=== PATIENT | male | born 2000 | race Caucasian/White ===

== ENCOUNTER 2021-07-02 08:36 | Emergency (ER) | payer SELFPAY ==
--- NOTE | ~2021-07-02 | XR_ITS ---
EXAMINATION: XR chest 1V portable EXAM DATE: 07/02/2021 09:46 INDICATION: Cough and left-sided chest pain. TECHNIQUE: Portable AP frontal chest x-ray was obtained. Comparison is made to prior examination from 08/30/2015. FINDINGS: The lungs are clear. There are no pleural effusions. The cardiomediastinal silhouette is within normal limits. There is no pneumothorax suspected. The bones and soft tissues are unremarkab le. IMPRESSION: No acute cardiopulmonary findings. Reviewed, dictated and finalized at location B. K DIGGER
[2021-07-02 08:49] VITALS: BP 159/95; PULSE 75; RESP 18; TEMP 36.2; O2SAT 98
[2021-07-02 09:03] LABS: Basophils Percent Auto 0.4 % (0.2-1.2); Eosinophils Absolute Auto 0.1 K/mm3 (0-0.3); Eosinophils Percent Auto 1.3 % (0-4.4); Hematocrit 51.3 % (42.0-52.0); Hemoglobin 17.4 g/dL (14.0-18.0); Immature Granulocyte Absolute 0.01 K/mm3 (0.00-0.031); Immature Granulocyte Percent A 0.2 % (0-0.5); Lymphocytes Absolute Auto 0.94 K/mm3 (0.9-3.2); Lymphocytes Percent Auto 19.7 % (18.3-44.2); Mean Corpuscular HGB Conc 33.9 g/dl (32-36); Mean Corpuscular Hemoglobin 30.5 pg (26-34); Mean Corpuscular Volume 89.8 fl (80-100); Mean Platelet Volume 11.1 fl (7.4-10.4); Monocytes Absolute Auto 0.6 K/mm3 (0.1-0.6); Monocytes Percent Auto 13.4 % (2.6-8.5); Neutrophils Absolute Auto 3.1 K/mm3 (1.3-6.7); Platelet Count Result 201 k/mm3 (150-375); Red Blood Count 5.71 M/mm3 (4.6-6.20); White Blood Count 4.8 K/mm3 (4.5-10.0)
[2021-07-02 09:17] LABS: Add Urine Microscopic? YES; Alanine Aminotransferase 44 U/L (4-50); Albumin Level 4.9 g/dL (3.5-5.1); Alkaline Phosphatase 51 U/L (38-126); Anion Gap 10 mmol/L (8-16); Appearance Urine Clear (Clear); Aspartate Amino Transferase 31 U/L (17-59); Bilirubin Urine Negative (Negative); Bilirubin,Total 0.5 mg/dL (0.2-1.3); Blood Urea Nitrogen 11 mg/dL (9-20); Blood Urine Negative (Negative); Calcium 9.8 mg/dL (8.4-10.2); Carbon Dioxide 25 mmol/L (22-30); Chloride 104 mmol/L (98-107); Color Urine Yellow (Yellow); Estimated CRCL calculation 149 ml/min; Estimated Glomerular Filt Rate > 60; Glucose 113 mg/dL (65-110); Glucose Urine UA Negative (Negative); Ketones Urine Negative (Negative); Leukocyte Esterase Ur Negative LEU/UL (Negative); Lipase 56 U/L (23-300); Mucus Urine Rare /lpf; Nitrate Urine Negative (Negative); Potassium 4.1 mmol/L (3.4-5.0); Protein Urine 1+ mg/dL (Negative); RBC Urine 0-2 /hpf (0-2); Sodium 139 mmol/L (137-145); Specific Grav Ur 1.027 (1.001-1.035); Squamous Epithelial Cell Urine Rare /hpf (Few); Urobilinogen Urine Negative mg/dL (<2.0); WBC Urine 0-3 /hpf
[2021-07-02] MEDS: SODIUM CHLORIDE 0.9% IV 1,000 ML 999 ML IV CONT (09:38)
[2021-07-02] MEDS: ONDANSETRON INJ 4 MG/2 ML VIAL IV PUSH (09:38)
[2021-07-02] MEDS: DICYCLOMINE HCL INJ 20 MG/2 ML VIAL IM (10:37)
[2021-07-02] MEDS: PANTOPRAZOLE SODIUM IV 40 MG VIAL IV PUSH (10:38)
[2021-07-02] MEDS: KETOROLAC 15 MG/ML VIAL (*BKC) IV PUSH (10:38)
[2021-07-02 11:57] VITALS: BP 143/89; PULSE 64; RESP 18; O2SAT 97
--- NOTE | 2021-07-02 12:00 | ED.GENADULT ---
HPI - General Adult General Chief complaint: Nausea/Vomiting/Diarrhea Stated complaint: Vomiting Time Seen by Provider: 07/02/21 09:10 Source: patient Mode of arrival: ambulatory Limitations: no limitations History of Present Illness HPI narrative: Patient is unvaccinated 20-year-old male presenting with chief complaint left upper abdominal pain, nausea, vomiting and diarrhea that began after taking [place] and fluids due to cold-like symptoms. Patient reports everyone in his home has cold-like symptoms. He denies fevers or shortness of breath or chest pain. Patient reports that he took ibuprofen last with NSAID and his stomach became upset. He states he wonders if he has caused himself and ulcer. He denies bloody vomit or stool. He denies history of ulcers or bloody stool. Related Data Allergies Allergy/AdvReac Type Severity Reaction Status Date / Time No Known Allergies Allergy Unknown Verified 07/02/21 08:52 Review of Systems Review of Systems: CONSTITUTIONAL: Denies fever, chills, or sweats. EYES: Denies visual changes, redness, or discharge. ENT: Denies rhinorrhea, congestion, sore throat, or otalgia. CARDIOVASCULAR: Denies chest pain, palpitations, or edema. RESPIRATORY: Denies cough or dyspnea. GASTROINTESTINAL: Reports left upper quadrant abdominal pain, nausea, vomiting, or diarrhea. GENITOURINARY: Denies dysuria or hematuria. SKIN: Denies rash or itching. MUSCULOSKELETAL: Denies back pain, joint pain, or myalgia. NEUROLOGIC: Denies headache, numbness, dizziness, or weakness. PSYCHIATRIC: Denies anxiety or depression. Exam Narrative: GENERAL: Well-appearing, well-nourished, and in no acute distress. HEAD: Normocephalic, atraumatic. EYES: PERRLA and EOMI. CHEST: Clear to auscultation. No respiratory distress. No wheezes rales or rhonchi HEART: Regular rate and rhythm. No murmur heard. Normal peripheral pulses. ABDOMEN: Soft, no tenderness to right upper quadrant, epigastric, right lower quadrant umbilicus area. There is mild tenderness to palpation of the left upper quadrant, nondistended, normal active bowel sounds. EXTREMITIES: Normal range of motion. No edema. SKIN: Warm, dry, no rash. NEURO: No focal deficits. Alert and oriented x3. PSYCH: Normal mood and affect. Course Vital Signs Vital signs: Vital Signs Temperature 97.1 F L 07/02/21 08:49 Pulse Rate 75 07/02/21 08:49 Respiratory Rate 18 07/02/21 08:49 Blood Pressure 159/95 H 07/02/21 08:49 Pulse Oximetry 98 07/02/21 08:49 Temperature 98 F 07/02/21 12:22 Pulse Rate 64 07/02/21 11:57 Respiratory Rate 18 07/02/21 11:57 Blood Pressure 143/89 H 07/02/21 11:57 Pulse Oximetry 97 07/02/21 11:57 Medical Decision Making MDM Narrative Medical decision making narrative: Patient has not had no vomiting or diarrhea while in emergency department. Patient has not a remittance of his symptoms especially from the [facility] and [facility]. Patient was also given Protonix and instructed to avoid NSAIDs if he notes stomach upset after taking it. Patient instructed to follow-up with his primary care, to call today to schedule follow-up appointment. Patient has been instructed to return to emergency department immediately if he develops any worsening or emergent symptoms. Patient does not have abdominal pain, nausea or vomiting or diarrhea at this time. Patient has been instructed that the next that would be CT imaging which he does not feel needed at this time. Patient verbalized understanding agreement with plan and denies any other needs or concerns. Differential Diagnosis Differential Diagnosis: Appendicitis, diverticulitis, GI bleed, viral syndrome, colitis Vital Signs Vital Signs: Vital Signs Temperature 97.1 F L 07/02/21 08:49 Pulse Rate 75 07/02/21 08:49 Respiratory Rate 18 07/02/21 08:49 Blood Pressure 159/95 H 07/02/21 08:49 Pulse Oximetry 98 07/02/21 08:49 Temperature 98 F 07/02/21 12:22 Pulse Rate 64 07/02/21
[2021-07-02 12:22] VITALS: TEMP 36.6
== END 2021-07-02 12:24 | disposition home or self-care (01) ==
PROVIDERS: Emergency Provider Emergency Medicine
DX: K52.9 Noninfective gastroenteritis and colitis, unspecified (principal)
CPT/HCPCS: 36415; 71045; 80053; 81001; 83690; 85025; 96361; 96365; 96372; 96375; 99284; C9113; J0131; J0500; J1885; J2405; J7030

== ENCOUNTER 2021-12-12 14:39 | Outpatient (CLI) | payer OTHER, SELFPAY ==
[2021-12-12 15:05] LABS: Basophils Percent Auto 0.5 % (0.2-1.2); Eosinophils Absolute Auto 0.1 K/mm3 (0-0.3); Eosinophils Percent Auto 1.1 % (0-4.4); Hematocrit 47.5 % (42.0-52.0); Hemoglobin 16.1 g/dL (14.0-18.0); Immature Granulocyte Absolute 0.03 K/mm3 (0.00-0.031); Immature Granulocyte Percent A 0.5 % (0-0.5); Lymphocytes Absolute Auto 1.76 K/mm3 (0.9-3.2); Lymphocytes Percent Auto 27.9 % (18.3-44.2); Mean Corpuscular HGB Conc 33.9 g/dl (32-36); Mean Corpuscular Hemoglobin 30.6 pg (26-34); Mean Corpuscular Volume 90.3 fl (80-100); Mean Platelet Volume 11.3 fl (7.4-10.4); Monocytes Absolute Auto 0.6 K/mm3 (0.1-0.6); Neutrophils Absolute Auto 3.8 K/mm3 (1.3-6.7); Platelet Count Result 237 k/mm3 (150-375); Red Blood Count 5.26 M/mm3 (4.6-6.20); Red Cell Distribution Width 12.2 % (11.5-14.5); White Blood Count 6.3 K/mm3 (4.5-10.0)
[2021-12-12 15:18] LABS: Alanine Aminotransferase 38 U/L (6-50); Albumin Level 4.8 g/dL (3.5-5.1); Alkaline Phosphatase 61 U/L (38-126); Anion Gap 11 mmol/L (8-16); Aspartate Amino Transferase 30 U/L (17-59); Bilirubin,Total 0.7 mg/dL (0.2-1.3); Blood Urea Nitrogen 7 mg/dL (9-20); Calcium 9.5 mg/dL (8.4-10.2); Carbon Dioxide 22 mmol/L (22-30); Chloride 108 mmol/L (98-107); Cholesterol 239 mg/dL (0-200); Estimated Glomerular Filt Rate > 60; Glucose 99 mg/dL (65-110); HDL Direct 44 mg/dL; Potassium 3.9 mmol/L (3.4-5.0); Sodium 141 mmol/L (137-145); Triglycerides 98 mg/dL (<150)
[2021-12-12 15:29] LABS: LDL Cholesterol Direct 144 mg/dL
== END 2021-12-12 14:40 | disposition home or self-care (01) ==
LOC: ANHLAB 14:44
PROVIDERS: PCP Internal Medicine; Visit Provider Nurse Practitioner
DX: Z13.29 Encounter for screening for other suspected endocrine disorder (principal); Z13.220 Encounter for screening for lipoid disorders; F32.A Depression, unspecified
CPT/HCPCS: 36415; 80053; 80061; 84443; 85025

== ENCOUNTER 2022-01-28 09:06 | Emergency (ER) | payer OTHER, SELFPAY ==
--- NOTE | ~2022-01-28 | XR_ITS ---
This report was recreated 02/13/2022. Original report was signed by Gabino Bond M.D. on 01/28/2022 9:41 CDT EXAMINATION: XR knee RT min 4V DATE: 01/28/2022 09:39 INDICATION: Right knee injury. TECHNIQUE: 4 views of right knee were obtained. COMPARISON: None. FINDINGS: Bone alignment is normal. No fracture. Joint spaces are well maintained. There is no knee joint effusion. IMPRESSION: 1. No fracture. Reviewed, dictated and finalized at location A. Dictated By: Gabino Bond MD 01/28/2241 Signed By: <Electronically signed by Gabino Bond MD in [place]> 01/28/22940 [facility]
--- NOTE | ~2022-01-28 | XR_ITS ---
EXAMINATION: XR knee RT min 4V DATE: 01/28/2022 09:39 INDICATION: Right knee injury. TECHNIQUE: 4 views of right knee were obtained. COMPARISON: None. FINDINGS: Bone alignment is normal. No fracture. Joint spaces are well maintained. There is no knee j oint effusion. IMPRESSION: 1. No fracture. Reviewed, dictated and finalized at location A.
[2022-01-28 09:14] VITALS: BP 141/97; PULSE 94; RESP 16; TEMP 37.6; O2SAT 99
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
== END 2022-01-28 10:00 | disposition home or self-care (01) ==
PROVIDERS: Emergency Provider Registered Nurse; PCP Nurse Practitioner
DX: S80.01XA Contusion of right knee, initial encounter (principal); V48.5XXA Car driver injured in noncollision transport accident in traffic accident, initial encounter; I10 Essential (primary) hypertension; I48.91 Unspecified atrial fibrillation
CPT/HCPCS: 73564; 99213; G0463

== ENCOUNTER 2023-12-28 07:24 | Emergency (ER) | payer OTHER, SELFPAY ==
[2023-12-28 07:30] VITALS: BP 174/98; PULSE 92; RESP 15; TEMP 36.7; O2SAT 100
--- NOTE | 2023-12-28 08:23 | ED.SKABFB ---
HPI - Skin/Abscess/Foreign Bdy General Chief complaint: Skin/Abscess/Foreign Body Stated complaint: skin infection Time Seen by Provider: 12/28/23 07:28 History of Present Illness HPI narrative: Patient is a 23-year-old male who presents ER with concerns for skin infection. Over last days developed red itchy bumps over his left lower abdomen as well as his right index finger and his right thigh. He is concerned he has cellulitis. No fevers or chills or sweats. No known sick contacts. Symptoms developed after sleeping on his friend's couch who often houses the homeless. Related Data Allergies Allergy/AdvReac Type Severity Reaction Status Date / Time No Known Allergies Allergy Unknown Verified 12/28/23 07:41 Review of Systems Review of Systems: All systems reviewed & are unremarkable except as noted in HPI and below Constitutional: Constitutional: Reports no additional constitutional complaints Cardiovascular: Cardiovascular: Reports no additional cardiovascular complaints Respiratory: Respiratory: Reports no additional respiratory complaints Integumentary/Breasts: Skin/Breast: Reports pruritus, Reports erythema and Reports skin ulcer PMFSH Past Medical History Medical History Anxiety Atrial fibrillation Depression Environmental allergies HTN (hypertension) Obesity Tobacco abuse Family History Family History (Updated 08/15/22 @ 11:49 by Anabell Valentine CMA) Mother Hypertension Depression Anxiety Sibling Hypertension Depression Anxiety Cerebrovascular accident Alcohol abuse Grandparent Alcohol abuse Hypertension Depression Anxiety Heart disease Lung cancer Other Lung cancer Social History Social History (Updated 08/15/22 @ 11:55 by Anabell Valentine [facility]) Smoking status: Current every day smoker Tobacco type: cigarettes Alcohol intake: current Drinks per week: 10 Alcohol use details: 1-10 beers weekly/1-2 shots weekly Substance use: current Lack of Transportation: YES Lack of Food: Sometimes True Current Housing: I Have Housing Concerned About Future Housing: No Difficulty Paying Gas/Electric Bills: No Difficulty Paying for Meds: YES Currently Unemployed: No Education: High School Diploma/GED Difficulty w/ Childcare or Family Care: No Living arrangements: with roommate(s) Occupation/Education: unemployed Gender identity (if verbalized by the patient): Male Sexual Orientation (if Verbalized by the Patient): Straight or Heterosexual Agree to blood products: Yes Exam Narrative: GENERAL: Well-appearing, well-nourished, and in no acute distress. HEAD: Normocephalic, atraumatic. ENT: Mucous membranes moist. CHEST: Clear to auscultation. No respiratory distress. HEART: Regular rate and rhythm. Normal peripheral pulses. EXTREMITIES: Normal range of motion. No edema. SKIN: Warm, dry . Left lower quadrant linear streak of bite jara with weeping. These are similar in nature to bite jara that are on the right thigh and the right finger. NEURO: Alert and oriented x3. PSYCH: Normal mood and affect. Course Course Emergency Course: Patient did not see any bugs at his friend's house. Given the intense pruritic nature this is likely that would be a bedbug or flea however scabies cannot be ruled out. Also because of the fiery red nature of his abdominal wall we will prescribe an antibiotic. Vital Signs Vital signs: Vital Signs Temperature 98.1 F 12/28/23 07:30 Pulse Rate 92 12/28/23 07:30 Respiratory Rate 15 12/28/23 07:30 Blood Pressure 174/98 H 12/28/23 07:30 Pulse Oximetry 100 12/28/23 07:30 Oxygen Delivery Room Air 12/28/23 07:30 Temperature 98 F 12/28/23 08:39 Pulse Rate 71 12/28/23 08:39 Respiratory Rate 15 12/28/23 08:39 Blood Pressure 133/77 12/28/23 08:39 Pulse Oximetry 98 12/28/23 08:39 Oxygen Delivery Room
[2023-12-28 08:39] VITALS: BP 133/77; PULSE 71; RESP 15; TEMP 36.6; O2SAT 98
== END 2023-12-28 08:40 | disposition home or self-care (01) ==
PROVIDERS: Emergency Provider Emergency Medicine
DX: L03.90 Cellulitis, unspecified (principal); S30.861A Insect bite (nonvenomous) of abdominal wall, initial encounter; S60.460A Insect bite (nonvenomous) of right index finger, initial encounter; S70.361A Insect bite (nonvenomous), right thigh, initial encounter; F41.9 Anxiety disorder, unspecified; I48.91 Unspecified atrial fibrillation; F32.A Depression, unspecified; I10 Essential (primary) hypertension; F17.210 Nicotine dependence, cigarettes, uncomplicated; W57.XXXA Bitten or stung by nonvenomous insect and other nonvenomous arthropods, initial encounter
CPT/HCPCS: 99283

== ENCOUNTER 2025-05-02 14:21 | Emergency (ER) | payer OTHER, SELFPAY ==
--- NOTE | ~2025-05-02 | CT_ITS ---
CT abdomen pelvis w con INDICATION:upper abd pain, N/V . COMPARISON: None. TECHNIQUE: Axial images of the abdomen and pelvis were obtained following infusion of 100 mL Isovue 300. Dose optimization technique was utilized. FINDINGS: The lung bases are clear. The liver parenchyma is unremarkable. No intrahepatic mass or ductal dilatation is evident. The gallbladder is unremarkable. The pancreas and spleen are normal in appearance. The adrenal glands are symmetric in size. The kidneys demonstrate symmetric uptake and excretion of contrast. No cystic mass is evident. There is no solid mass. There is no hydronephrosis. The stomach and bowel loops are unremarkable. The appendix is not visualized however no secondary signs of appendicitis are identified. There is mild colonic diverticulosis without evidence of acute diverticulitis. The bladder and rectum are normal. No free intraperitoneal fluid or air is evident. There is no significant retroperitoneal lymphadenopathy. The aorta, visceral vessels and renal arteries demonstrate normal caliber and patency. The lower thoracic and lumbar vertebrae are in normal alignment. IMPRESSION: No acute abnormality is noted in the abdomen and pelvis. Mild colonic diverticulosis without evidence of acute diverticulitis. All CT scans at this facility are performed using low dose modulation techniques as appropriate to perform exam including the following: automated exposure control; use of iterative reconstruction technique; adjustment of the mA and/or kV according to patient size (this includes techniques or standardized protocols for targeted exams where dose is matched to indication/reason for exam). Reviewed, dictated and finalized at location S. IMPRESSION: No acute abnormality is noted in the abdomen and pelvis. Mild colonic diverticulosis without evidence of acute diverticulitis. All CT scans at this facility are performed using low dose modulation techniqu es as appropriate to perform exam including the following: automated exposure c ontrol; use of iterative reconstruction technique; adjustment of the mA and/or kV according to patient size (this includes techniques or standardized protocol s for targeted exams where dose is matched to indication/reason for exam).
[2025-05-02 15:18] VITALS: BP 178/104; PULSE 82; RESP 16; TEMP 36.9; O2SAT 100
--- OUTSIDE RECORDS SUMMARY | 2025-05-02 15:24 | XMS_ITS | Clinical Summary ---
Author Organization [facility] Address [address] [place] [address] Care Team Providers Care Diaphragm Builder Name Role Phone Unavailable Primary Care Provider Unavailabl e Source Comments [facility],non-owned Affiliates and Associated Physician Practices is amultiple site organization consisting of ambulatory clinics and hospital sitesin [place], [place], [place] and [place]. This disclosure is being madepursuant to the Care Everywhere program and may not contain all information available regarding this patient. Last updated 18.[facility] Allergies No known active allergies Medications * Be aware that medications may not be up to date on this document. Alwaysverify current medications with the patient. metoprolol succinate XL 24hr (TOPROL XL) 25 MG tablet Take 1 tablet by mouth once daily 30 tablet 05/01/2020 Active aspirin (ASPIRIN) 81 MG chew tablet Take 1 tablet by mouth once daily 30 tablet 05/02/2020 Active aspirin (ASPIRIN) 325 MG tablet Take 1 tablet by mouth once daily 100 tablet 05/01/2020 Active Active Problems Problem Noted Date Diagnosed Date Atrial fibrillation 04/30/2020 Essential hypertension 04/30/2020 Social History Tobacco Use Types Packs/Day Years Used Date Smoking Tobacco: Every Day Cigarettes Smokeless Tobacco: Never Alcohol Use Standard Drinks/Week Comments Yes 24 (1 standard drink = 0.6 oz pu re alcohol) Sex and Gender Information Value Date Recorded Sex Assigned at Not on file 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 Gender Identity Not on file Sexual Orientation Not on file Last Filed Vital Signs Vital Sign Reading Time Taken Comments Blood Pressure 155/98 05/01/2020 9:05 AM CDT Pulse 79 05/01/2020 9:05 AM CDT Temperature 36.4 C (97.6 F) 05/01/2020 9:05 AM CDT Respiratory Rate 18 05/01/2020 9:05 AM CDT Oxygen Saturation 97% 05/01/2020 9:05 AM CDT Inhaled Oxygen Concentration - - Weight 113.5 kg (250 lb 3.6 oz) 05/01/2020 3:35 AM CDT Height 180.3 cm (5' 11) 04/30/2020 7:43 PM CDT Body Mass Index 34.9 04/30/2020 7:43 PM CDT Plan of Treatment Health Maintenance Due Date Last Done Comments HIV SCREENING 10/10/2014 HPV VACCINE (1 - Male 3-dose series) 10/10/2014 HEPATITIS C SCREENING 10/06/2017 DTAP/TDAP/TD VACCINES (1 - Tdap) 10/10/2018 HEPATITIS B VACCINE (1 of 3 - 19+ 3-dose series) 10/10/2018 PNEUMOCOCCAL VACCINE (1 of 2 - PCV) 10/10/2018 DEPRESSION SCREENING 07/21/2024 COVID-19 VACCINE (1 - 2023-2 5 season) 2025 INFLUENZA VACCINE (#1) 2025 ZOSTER VACCINE (1 of 2) 10/10/2049 HIB VACCINE Aged Out No longer eligi ble based on patient's age to complete this topic MENINGOCOCCAL (Group B) VACC INE SHARED DECISION-MAKING Aged Out No longer eligibl e based on patient's age to complete this topic MENINGOCOCCAL GROUPS A/C/Y/W VACCINE Aged Out No longer eligible b ased on patient's age to complete this topic Advance Directives * Full Code (Latest Code Status on File) Date Activated Date Inactivated Comments 04/30/2020 7:44 PM 05/01/2020 12:59 PM * Full Code Date Activated Date Inactivated Comments 04/30/2020 6:25 PM 04/30/2020 7:44 PM
--- OUTSIDE RECORDS SUMMARY | 2025-05-02 15:24 | XMS_ITS | Clinical Summary ---
Author Organization [facility] Address [address] [place] [address] Care Team Providers Care Program Host Name Role Phone No, Physician Primary Care Provider [phone] Allergies No known active allergies Medications amLODIPine (NORVASC) 5 mg tablet Take 1 tablet (5 mg total) by mouth daily 30 tablet 04/10/2023 Active Immunizations Immunization Administration Dates Next Due Tdap 08/10/2022 Medical History Medical History Date Comments Asthma Hypertension A-fib (HCC) Social History Tobacco Use Types Packs/Day Years Used Date Smoking Tobacco: Every Day Smokeless Tobacco: Never Tobacco Cessation:Ready to Q uit: Not Asked; Counseling Given: Not Answered Personal Safety Answer Date Recorded Getting School Help Needed Not on file 04/25 Sex and Gender Information Value Date Recorded Sex Assigned at Not on file 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 Gender Identity Not on file Sexual Orientation Not on file Obstetrics History Last Filed Vital Signs Vital Sign Reading Time Taken Comments Blood Pressure 146/100 04/10/2023 8:30 PM CDT Pulse 74 04/10/2023 8:30 PM CDT Temperature 37 C (98.6 F) 04/10/2023 6:23 PM CDT Respiratory Rate 16 04/10/2023 8:30 PM CDT Oxygen Saturation 98% 04/10/2023 8:30 PM CDT Inhaled Oxygen Concentration - - Weight 108.9 kg (240 lb) 04/10/2023 6:23 PM CDT Height 180.3 cm (5' 11) 04/10/2023 6:23 PM CDT Body Mass Index 33.47 04/10/2023 6:23 PM CDT Plan of Treatment Health Maintenance Due Date Last Done Comments Depression Screening 1999 Hepatitis C Screening 1999 Varicella Vaccines (1 of 2 - 13+ 2-dose series) 10/10/2012 HPV Vaccines (1 - Male 3-dos e series) 10/10/2014 Regular Well Visit/Exam 18-64 10/10/2017 Pneumococcal vaccine <65 (1 of 2 - PCV) 10/10/2018 Influenza Vaccine (#1) 2025 DTaP/Tdap/Td Vaccine (6 - Td or Tdap) 08/10/2032 08/10/2022, 12/21/2019, 12/29/2003, Additional history exists Hepatitis B Screening Completed 1999, 000 Insurance [facility] Care Teams Program Host Relationship Specialty Start Date End Date No, Physician PCP - General 08/21/20
--- OUTSIDE RECORDS SUMMARY | 2025-05-02 15:24 | XMS_ITS | Clinical Summary ---
Author Organization [facility] Address [address] [place] [address] Care Team Providers Care Spooler Operator Automatic Name Role Phone Non-Staff, Provider Primary Care Provider Unique labama Allergies No known active allergies Medications HYDROcodone-ac etaminophen (NORCO) 5-325 MG tabletIndicati ons:Acute Pain < 3 Day Supply Take 1 tablet by mouth every 6 (six) hours as needed. Indications: Acute Pain < 3 Day Supply Do not exceed 4g of acetaminophen in a day. 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 Gender Identity Not on file Sexual Orientation Not on file Last Filed Vital Signs Vital Sign Reading Time Taken Comments Blood Pressure 150/90 06/18/2024 6:42 PM DIRECTOR OF HOUSING Pulse 98 06/18/2024 6:47 PM DIRECTOR OF HOUSING Temperature 37 C (98.6 F) 06/18/2024 6:42 PM DIRECTOR OF HOUSING Respiratory Rate 20 06/18/2024 6:42 PM DIRECTOR OF HOUSING Oxygen Saturation 100% 06/18/2024 6:42 PM DIRECTOR OF HOUSING Inhaled Oxygen Concentration - - Weight 106.5 kg (234 lb 12.6 oz) 06/18/2024 6:42 PM DIRECTOR OF HOUSING Height 180.3 cm (5' 11) 06/18/2024 6:42 PM DIRECTOR OF HOUSING Body Mass Index 32.75 06/18/2024 6:42 PM DIRECTOR OF HOUSING Plan of Treatment Health Maintenance Due Date Last Done Comments Annual Physical 10/10/2002 HPV Vaccines (1 - Male 3-dose series) 10/10/2014 Hepatitis C 10/10/2017 DTaP, Tdap and Td Vaccines (7 - Td or Tdap) 02/22/2021 02/22/2011, 12/29/2003, 10/27/2001, Additional history exists COVID-19 Vaccine (1 - season) 2025 Influenza Adult (#1) 2025 05/01/2015 Hepatitis B Vaccines Completed 02/18/2001, 1999, 1999 Pneumococcal Vaccine: Pediatrics (0 to 5 Years) and At-Risk Patients (6 to 49 Years) Aged Out 10/27/2001, 02/18/2001, 04/14/2000 No longer eligible based on patient's age to complete this topic Meningococcal Vaccine Completed 04/16/2017, 011 Meningococcal B Vaccine Aged Out No l onger eligible based on patient's age to complete this topic RSV Immunizations Under 20 Months Aged Out No longer eligible based on patient's age to complete this topic Insurance Care Teams Spooler Operator Automatic Relationship Specialty Start Date End Date Non-Staff, Provider PCP - General UNKNOWN PHYSICIAN SPECIALTY 06/18/24
--- NOTE | 2025-05-02 17:11 | ED_ITS ---
HPI - Nausea/Vomiting/Diarrhea General Chief complaint: Nausea/Vomiting/Diarrhea <Hafsa Summers PA-C - Last Filed: 05/02/25 17:22> Stated complaint: vomiting blood <Hafsa Summers PA-C - Last Filed: 05/02/25 17:22> Time Seen by Provider: 05/02/25 17:11 <CAMILO Green Last Filed: 05/02/25 17:22> Focused HPI: Patient is a 24 y/o male who presents to the ED with c/o N/V. Patient reports he was at work today and suddenly developed N/V. Reports he had 1 large episode of emesis and did notice some bright red blood in his vomit. He states he felt very weak, foggy, shaky at that time. Also reports pain throughout his upper abdomen. Complains of diarrhea for the past 1 week. States it is intermittently melanotic, has occasionally taken Pepto Bismol. Denies rectal bleeding. GENERAL: Well-appearing, obese with BMI of 33.5, and in no acute distress. HEAD: Normocephalic, atraumatic. CHEST: Clear to auscultation. ?No respiratory distress. HEART: Regular rate and rhythm.? ABD: Mild TTP in epigastric region NEURO: ?Alert and oriented x3. Patient screened in triage and initial orders placed.? ?Additional care and disposition to be based upon?diagnostic testing and treatment. <Hafsa Summers PA-C - Last Filed: 05/02/25 17:22> Source: patient <Hfasa Summers PA-C - Last Filed: 05/02/25 17:22> Mode of arrival: ambulatory <CAMILO Green Last Filed: 05/02/25 17:22> Limitations: no limitations <CAMILO Green Last Filed: 05/02/25 17:22> History of Present Illness HPI Narrative: Agree the HPI. Bright red blood after multiple episodes of forceful vomiting. He has only had white frothy diarrhea today. <Chepe Sheikh MD - Last Filed: 05/02/25 19:56> Related Data Allergies/Adverse reactions: Allergies Allergy/AdvReac Type Severity Reaction Status Date / Time No Known Allergies Allergy Unknown Verified 05/02/25 14:22 <Hafsa Summers PA-C - Last Filed: 05/02/25 17:22> Review of Systems 2 Review of Systems: All systems reviewed & are unremarkable except as noted in HPI and below <Chepe Sheikh MD - Last Filed: 05/02/25 19:56> Constitutional: Constitutional: Reports no additional constitutional complaints <Chepe Sheikh MD - Last Filed: 05/02/25 19:56> ENT: Reports system reviewed and no additional complaints, except as documented <Chepe Sheikh MD - Last Filed: 05/02/25 19:56> Cardiovascular: Cardiovascular: Reports no additional cardiovascular complaints <Chepe Sheikh MD - Last Filed: 05/02/25 19:56> Musculoskeletal: Musculoskeletal: Reports no additional musculoskeletal complaints <Chepe Sheikh MD - Last Filed: 05/02/25 19:56> [facility] Past Medical History Medical History: Medical History Anxiety Atrial fibrillation Depression Environmental allergies HTN (hypertension) Obesity Tobacco abuse <Hafsa Summers PA-C - Last Filed: 05/02/25 17:22> Family History Family History: Family History (Updated 08/15/22 @ 11:49 by Anabell Valentine CMA) Mother Hypertension Depression Anxiety Sibling Hypertension Depression Anxiety Cerebrovascular accident Alcohol abuse Grandparent Alcohol abuse Hypertension Depression Anxiety Heart disease Lung cancer Other Lung cancer <Hafsa Summers PA-C - Last Filed: 05/02/25 17:22> Social History Social History: Social History (Updated 08/15/22 @ 11:55 by Anabell Valentine [facility]) Smoking status: Current every day smoker Tobacco type: cigarettes Alcohol intake: current Drinks per week: 10 Alcohol use details: 1-10 beers weekly/1-2 shots weekly Substance use: current Lack of Transportation: YES Lack of Food: Sometimes True Current Housing: I Have Housing Concerned About Future Housing: No Difficulty Paying Gas/Electric Bills: No Difficulty Paying for Meds: YES Currently Unemployed: No Education: High School Diploma/GED Difficulty w/ Childcare or Family Care: No Living arrangements: with roommate(s) Occupation/Education: unemployed Gender identity (if verbalized by the patient): Male Sexual Orientation (if Verbalized by the Patient): Straight or Heterosexual Agree to blood products: Yes <Hafsa Summers PA-C - Last Filed: 05/02/25 17:22> Exam 2 Narrative: GENERAL: Well-appearing, well-nourished, and in no acute distress. HEAD: Normocephalic, atraumatic. ENT: Mucous membranes moist. CHEST: Clear to auscultation. No respiratory distress. HEART: Regular rate and rhythm. Normal peripheral pulses. ABDOMEN: Soft, nontender, nondistended. EXTREMITIES: Normal range of motion. No edema. SKIN: Warm, dry, no rash. NEURO: Alert and oriented x3. PSYCH: Normal mood and affect. <Chepe Sheikh MD - Last Filed: 05/02/25 19:56> Course Course Emergency Course: Benign exam, labs and imaging unremarkable. Appropriate for discharge home. <Chepe Sheikh MD - Last Filed: 05/02/25 19:56> Vital Signs Vital signs: Vital Signs Temperature 98.4 F 05/02/25 15:18 Pulse Rate 82 05/02/25 15:18 Respiratory Rate 16 05/02/25 15:18 Blood Pressure 178/104 H 05/02/25 15:18 Pulse Oximetry 100 05/02/25 15:18 Oxygen Delivery Room Air 05/02/25 15:18 Temperature 98.4 F 05/02/25 15:18 Pulse Rate 86 05/02/25 19:20 Respiratory Rate 20 05/02/25 19:20 Blood Pressure 158/93 H 05/02/25 19:20 Pulse Oximetry 100 05/02/25 19:20 Oxygen Delivery Room Air 05/02/25 15:18 <Hafsa Summers PA-C - Last Filed: 05/02/25 17:22> Vital Signs Temperature 98.4 F 05/02/25 15:18 Pulse Rate 82 05/02/25 15:18 Respiratory Rate 16 05/02/25 15:18 Blood Pressure 178/104 H 05/02/25 15:18 Pulse Oximetry 100 05/02/25 15:18 Oxygen Delivery Room Air 05/02/25 15:18 Temperature 98.4 F 05/02/25 15:18 Pulse Rate 86 05/02/25 19:20 Respiratory Rate 20 05/02/25 19:20 Blood Pressure 158/93 H 05/02/25 19:20 Pulse Oximetry 100 05/02/25 19:20 Oxygen Delivery Room Air 05/02/25 15:18 <Chepe Sheikh MD - Last Filed: 05/02/25 19:56> MDM - Nausea/Vomiting/Diarrhea MDM Narrative Medical decision making narrative: MSE by GENTRY in triage. <Hafsa Summers PA-C - Last Filed: 05/02/25 17:22> Lab Data Result diagrams: 05/02/25 17:39 05/02/25 17:39 <Hafsa Summers PA-C - Last Filed: 05/02/25 17:22> Labs: Lab Results 05/02/25 Range/Units 17:39 WBC 9.2 (4.5-10.0) K/mm3 RBC 5.64 (4.6-6.20) M/mm3 Hgb 16.7 (14.0-18.0) g/dL Hct 49.1 (42.0-52.0) % MCV 87.1 (80-100) fl MCH 29.6 (26-34) pg MCHC 34.0 (32-36) g/dl RDW 11.9 (11.5-14.5) % Plt Count 280 (150-375) k/mm3 MPV 10.3 (7.4-10.4) fl Immature Gran % (Auto) 0.8 H (0-0.5) % Neut % (Auto) 71.5 (45.5-73.1) % Lymph % (Auto) 19.5 (18.3-44.2) % [place] % (Auto) 6.6 (2.6-8.5) % Eos % (Auto) 1.1 (0-4.4) % Baso % (Auto) 0.5 (0.2-1.2) % Lymph # (Auto) 1.79 (0.9-3.2) K/mm3 [place] # (Auto) 0.6 (0.1-0.6) K/mm3 Eos # (Auto) 0.1 (0-0.3) K/mm3 Baso # (Auto) 0.1 (0.0-0.1) K/mm3 Abs Immat Gran (auto) 0.07 H (0.00-0.031) K/mm3 Absolute Neuts (auto) 6.6 (1.3-6.7) K/mm3 Absolute Nucleated RBC 0.000 (0.0-0.012) K/mm3 Nucleated RBC % 0.0 (0.0-0.2) % Sodium 138 (137-145) mmol/L Potassium 3.9 (3.4-5.0) mmol/L Chloride 104 (98-107) mmol/L Carbon Dioxide 23 (22-30) mmol/L Anion Gap 11 (4-12) mmol/L BUN 9 (9-20) mg/dL Creatinine 0.80 (0.7-1.3) mg/dL Estim Creat Clear Calc 154 ml/min Estimated GFR > 60 (59 - ) Glucose 99 (65-110) mg/dL Calcium 10.0 (8.4-10.2) mg/dL Total Bilirubin 0.8 (0.2-1.3) mg/dL AST 40 (17-59) U/L ALT 54 H (6-50) U/L Alkaline Phosphatase 63 (38-126) U/L Total Protein 9.1 H (6.3-8.2) g/dL Albumin 5.1 (3.5-5.1) g/dL Lipase 76 (23-300) U/L Urine Color Yellow (Yellow) Urine Appearance Clear (Clear) Urine pH 6.0 (5.0-9.0) Ur Specific [place] 1.010 (1.001-1.035) Urine Protein Negative (Negative) mg/dL Urine Glucose (UA) Negative (Negative) mg/dL Urine Ketones Negative (Negative) mg/dL Ur Blood (Man) Negative (Negative) Urine Nitrate Negative (Negative) Urine Bilirubin Negative (Negative) Urine Urobilinogen 0.2 (<2.0) mg/dL Leukocyte Esterase Rfl Negative (Negative) KEVIN/UL <Hafsa Summers PA-C - Last Filed: 05/02/25 17:22> Lab Results 10/13/25 Range/Units 17:39 WBC 9.2 (4.5-10.0) K/mm3 RBC 5.64 (4.6-6.20) M/mm3 Hgb 16.7 (14.0-18.0) g/dL Hct 49.1 (42.0-52.0) % MCV 87.1 (80-100) fl MCH 29.6 (26-34) pg MCHC 34.0 (32-36) g/dl RDW 11.9 (11.5-14.5) % Plt Count 280 (150-375) k/mm3 MPV 10.3 (7.4-10.4) fl Immature Gran % (Auto) 0.8 H (0-0.5) % Neut % (Auto) 71.5 (45.5-73.1) % Lymph % (Auto) 19.5 (18.3-44.2) % [place] % (Auto) 6.6 (2.6-8.5) % Eos % (Auto) 1.1 (0-4.4) % Baso % (Auto) 0.5 (0.2-1.2) % Lymph # (Auto) 1.79 (0.9-3.2) K/mm3 [place] # (Auto) 0.6 (0.1-0.6) K/mm3 Eos # (Auto) 0.1 (0-0.3) K/mm3 Baso # (Auto) 0.1 (0.0-0.1) K/mm3 Abs Immat Gran (auto) 0.07 H (0.00-0.031) K/mm3 Absolute Neuts (auto) 6.6 (1.3-6.7) K/mm3 Absolute Nucleated RBC 0.000 (0.0-0.012) K/mm3 Nucleated RBC % 0.0 (0.0-0.2) % Sodium 138 (137-145) mmol/L Potassium 3.9 (3.4-5.0) mmol/L Chloride 104 (98-107) mmol/L Carbon Dioxide 23 (22-30) mmol/L Anion Gap 11 (4-12) mmol/L BUN 9 (9-20) mg/dL Creatinine 0.80 (0.7-1.3) mg/dL Estim Creat Clear Calc 154 ml/min Estimated GFR > 60 (59 - ) Glucose 99 (65-110) mg/dL Calcium 10.0 (8.4-10.2) mg/dL Total Bilirubin 0.8 (0.2-1.3) mg/dL AST 40 (17-59) U/L ALT 54 H (6-50) U/L Alkaline Phosphatase 63 (38-126) U/L Total Protein 9.1 H (6.3-8.2) g/dL Albumin 5.1 (3.5-5.1) g/dL Lipase 76 (23-300) U/L Urine Color Yellow (Yellow) Urine Appearance Clear (Clear) Urine pH 6.0 (5.0-9.0) Ur Specific [place] 1.010 (1.001-1.035) Urine Protein Negative (Negative) mg/dL Urine Glucose (UA) Negative (Negative) mg/dL Urine Ketones Negative (Negative) mg/dL Ur Blood (Man) Negative (Negative) Urine Nitrate Negative (Negative) Urine Bilirubin Negative (Negative) Urine Urobilinogen 0.2 (<2.0) mg/dL Leukocyte Esterase Rfl Negative (Negative) KEVIN/UL <Chepe Sheikh MD - Last Filed: 05/02/25 19:56> Imaging Data Radiologist's impression: ITS Impressions Abdomen/Pelvis CT 05/02/25 19:19 IMPRESSION: No acute abnormality is noted in the abdomen and pelvis. Mild colonic diverticulosis without evidence of acute diverticulitis. All CT scans at this facility are performed using low dose modulation techniques as appropriate to perform exam including the following: automated exposure control; use of iterative reconstruction technique; adjustment of the mA and/or kV according to patient size (this includes techniques or standardized protocols for targeted exams where dose is matched to indication/reason for exam). <Chepe Sheikh MD - Last Filed: 05/02/25 19:56> Discharge Plan Discharge Clinical Impression: Gastroenteritis <Hafsa Summers PA-C - Last Filed: 05/02/25 17:22> Patient Disposition: Still a Patient <Hafsa Summers PA-C - Last Filed: 05/02/25 17:22> Condition: Stable <Hafsa Summers PA-C - Last Filed: 05/02/25 17:22> Instructions: Gastroenteritis (ED) <CAMILO Green Last Filed: 05/02/25 17:22> Additional Instructions: Please drink plenty of fluids at home. Return to the emergency department if you develop high fevers, have persistent severe abdominal pain, or have bloody stools or vomit, as these could be signs of a more serious medical emergency. Return to the emergency department if you are unable to keep down liquids because of severe nausea/vomiting. <CAMILO Green Last Filed: 05/02/25 17:22> Patient Language: Israeli <CAMILO Green Last Filed: 05/02/25 17:22> Prescriptions: New ondansetron 4 mg tablet,disintegrating 4 mg PO Q6H PRN (Reason: nausea and vomiting) Qty: 10 0RF No Action duloxetine [Cymbalta] 30 mg capsule,delayed release(DR/EC) 30 mg PO DAILY Qty: 90 1RF lisinopril 10 mg tablet 10 mg PO DAILY Qty: 90 1RF permethrin 5 % cream 1 applic topical ONCE Qty: 60 0RF Rx Instructions: leave on for 8 to14 hrs before washing off hydrocortisone [Anti-Itch (HC)] 1 % cream 1 applic topical TID PRN (Reason: itching) Qty: 28.4 0RF cefuroxime axetil 500 mg tablet 500 mg PO BID Qty: 14 0RF <CAMILO Green Last Filed: 05/02/25 17:22> Follow-up/Referrals: Behzad Fang DO [Physician, Internal Medicine] - 1 Week <CAMILO Green Last Filed: 05/02/25 17:22>
[2025-05-02 17:51] LABS: Hematocrit 49.1 % (42.0-52.0); Hemoglobin 16.7 g/dL (14.0-18.0); Immature Granulocyte Percent A 0.8 % (0-0.5); Lymphocytes Absolute Auto 1.79 K/mm3 (0.9-3.2); Mean Corpuscular HGB Conc 34.0 g/dl (32-36); Mean Corpuscular Hemoglobin 29.6 pg (26-34); Mean Corpuscular Volume 87.1 fl (80-100); Nucleated Red Blood Cells Absolute Auto 0.000 K/mm3 (0.0-0.012); Nucleated Red Blood Cells Perc 0.0 % (0.0-0.2); Platelet Count Result 280 k/mm3 (150-375); Red Blood Count 5.64 M/mm3 (4.6-6.20); White Blood Count 9.2 K/mm3 (4.5-10.0)
[2025-05-02 17:55] LABS: Add Urine Microscopic? NO; Appearance Urine Clear (Clear); Glucose Urine UA Negative (Negative); Leukocyte Esterase Ur Negative LEU/UL (Negative); Nitrate Urine Negative (Negative); Specific Grav Ur 1.010 (1.001-1.035)
[2025-05-02 18:06] LABS: Alanine Aminotransferase 54 U/L (6-50); Albumin Level 5.1 g/dL (3.5-5.1); Alkaline Phosphatase 63 U/L (38-126); Anion Gap 11 mmol/L (4-12); Aspartate Amino Transferase 40 U/L (17-59); Bilirubin,Total 0.8 mg/dL (0.2-1.3); Blood Urea Nitrogen 9 mg/dL (9-20); Calcium 10.0 mg/dL (8.4-10.2); Carbon Dioxide 23 mmol/L (22-30); Chloride 104 mmol/L (98-107); Estimated CRCL calculation 154 ml/min; Estimated Glomerular Filt Rate > 60; Glucose 99 mg/dL (65-110); Lipase 76 U/L (23-300); Potassium 3.9 mmol/L (3.4-5.0); Sodium 138 mmol/L (137-145); Total Protein 9.1 g/dL (6.3-8.2)
[2025-05-02] MEDS: SODIUM CHLORIDE 0.9% IV 1,000 ML 999 ML IV CONT (19:17)
[2025-05-02] MEDS: ONDANSETRON INJ 4 MG/2 ML VIAL IV PUSH (19:18)
[2025-05-02 19:20] VITALS: BP 158/93; PULSE 86; RESP 20; O2SAT 100
[2025-05-02] MEDS: PANTOPRAZOLE SODIUM IV 40 MG VIAL IV PUSH (19:20)
== END 2025-05-02 20:36 | disposition home or self-care (01) ==
PROVIDERS: Physician Assistant; Emergency Provider Emergency Medicine
DX: K52.9 Noninfective gastroenteritis and colitis, unspecified (principal); F17.210 Nicotine dependence, cigarettes, uncomplicated
CPT/HCPCS: 36415; 74177; 80053; 81003; 83690; 85025; 96361; 96374; 96375; 99284; J2405; J2470; J7030; Q9967